=== PATIENT | male | born 1995 | race Two or more races ===

== ENCOUNTER 2017-08-09 10:29 | Emergency (ER) | payer SELFPAY ==
[2017-08-09] MEDS ORDERED: Diphtheria,Pertussis(Acell),Tetanus Vaccine 0.5 ML SDV IM ONE (11:08)
--- NOTE | 2017-08-09 13:04 | EDM.PDOC ---
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 and no visible injury to periosteum location of hematoma suggests angled entry and lack of penetration to bone - Related Data Allergies Allergy/AdvReac Type Severity Reaction Status Date / Time No Known Allergies Allergy Verified 08/09/17 11:38 Home Meds: Home Meds Cephalexin [IJD: Cephalexin] 500 mg PO TID 5 Days #15 cap 08/09/17 [Rx] Naproxen [Naprosyn] 500 mg PO BID #20 tablet 08/09/17 [Rx] Review of Systems - Review of Systems Review Of Systems: See Below Constitutional: Reports: No Symptoms Eyes: Reports: No Symptoms Ears: Reports: No Symptoms Nose: Reports: No Symptoms Mouth/Throat: Reports: No Symptoms Respiratory: Reports: No Symptoms Cardiovascular: Reports: No Symptoms GI/Abdominal: Reports: No Symptoms Genitourinary: Reports: No Symptoms Musculoskeletal: Reports: Leg Pain Skin: Reports: No Symptoms Neurological: Reports: No Symptoms Psychiatric: Reports: No Symptoms ED EXAM, GENERAL - Physical Exam Exam: See Below Exam Limited By: Other (no Ghanaian, coworker fluid Ghanaian and translated) General Appearance: Alert, WD/WN, No Apparent Distress Respiratory/Chest: No Respiratory Distress Cardiovascular: Regular Rate, Rhythm Extremities: Other (R thigh with an entry wound of 3-4 mm of dorsal mid thigh, hematoma of 15 x 6 cm that extends distally, mild tender at hematoma, no active bleeding, femur appears to be NT, not near joint) Course - Orders/Labs/Meds Orders: Active Orders 24 hr Category Date Time Status Vaccines to be Administered [RC] PER UNIT ROUTINE Care 08/09/17 11:09 Active Femur Min 2V Rt [CR] Stat Exams 08/09/17 12:28 Taken Meds: Medications Discontinued Medications Generic Name Dose Route Start Last Admin Trade Name Freq PRN Reason Stop Dose Admin Diphtheria/Tetanus/Acell Pertussis 0.5 ml 08/09/17 11:08 08/09/17 11:45 Adacel IM 08/09/17 11:09 0.5 ml .ONCE ONE Administration Departure - Departure Time of Disposition: 13:02 Disposition: Home, Self-Care 01 Condition: Good Clinical Impression: Accident caused by nail gun - Discharge Information Prescriptions: Cephalexin [IJD: Cephalexin] 500 mg PO TID 5 Days #15 cap Naproxen [Naprosyn] 500 mg PO BID #20 tablet Instructions: Puncture Wound, Xriz-ax-[id number] Referrals: PCP,None [Primary Care Provider] - Additional Instructions: To prevent infection, take the antibiotic cephalexin 500 mg 1 capsule 3 times a day for 5 days. To treat pain and inflammation and swelling, take naprosyn 500 mg 1 tab 2 times a day for 10 days. Limited walking for 2 days. Rest in motel room. No work for until cleared by a physician. See a local physician in 2 days. Return to Emergency Department the same day for any increase in redness, swelling, pain, warmth, fever or drainage. Para prevenir la infeccin, tome el antibitico cephalexin 500 mg 1 cpsula 3 veces al da kyle 5 [place]. Para tratar el dolor y la inflamacin e hinchazn, tome naprosyn 500 mg 1 nathan eta 2 veces al da kyle 10 [place]. Caminata limitada por 2 [place]. Descansa en la habitacin del motel. Ningn trabajo hasta que sea aprobado por un mdico. Visita a un mdico local en 2 [place]. Regrese al departamento de emergencia el mismo da para cualquier aumento de enrojecimiento, hinchazn, dolor, calor, fiebre o drenaje. - My Orders Last 24 Hours: My Active Orders 08/09/17 11:09 Vaccines to be Administered [RC] PER UNIT ROUTINE 08/09/17 12:28 Femur Min 2V Rt [CR] Stat - Assessment/Plan Last 24 Hours: My Active Orders 08/09/17 11:09 Vaccines to be Administered [RC] PER UNIT ROUTINE 08/09/17 12:28 Femur Min 2V Rt [CR] Stat
--- NOTE | 2017-08-09 15:35 | CR ---
INDICATION: Nail penetrated 10 cm, question foreign body. Question periosteal injury. RIGHT FEMUR: Three views of the right femur were obtained. An arrow is placed at the entry site of the nail. No evidence of a fracture, dislocation, or other significant bone or joint abnormality was identified - no periosteal injury could be identified. The distal femur was not included on the study. [facility]
== END 2017-08-09 13:20 | disposition home or self-care (01) ==
LOC: FB.ED 10:29
DX: S71.131A Puncture wound without foreign body, right thigh, initial encounter (principal); S70.11XA Contusion of right thigh, initial encounter; W29.4XXA Contact with nail gun, initial encounter; Z23 Encounter for immunization
CPT/HCPCS: 73552-RT; 90471; 90715; 99283